=== PATIENT | female | born 1940 | race Caucasian/White ===

== ENCOUNTER → 2023-09-12 09:49 | Outpatient (CLI) | payer MEDICARE, SELFPAY ==
--- NOTE | 2023-09-12 | DI.NM.S_ITS ---
PROCEDURE: NM MAURI PERF SPECT R&S PHARM Rest and pharmacological stress myocardial perfusion SPECT with gated imaging and ejection fraction RADIOPHARMACEUTICAL: 11.4 mCi Tc-99m tetrafosmin IV at rest and 27.0 mCi Tc-99m tetrafosmin IV at peak effect of pharmacological stress. A [id number] was performed. 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 SPECT images were obtained. SPECT myocardial perfusion images were displayed in short axis, horizontal long axis, and vertical long axis views. Gated images were reviewed using [employer] software. COMPARISON: None. CARDIAC STRESS: An exercise stress test was attempted. The patient ambulated on a Jose A protocol for 3 minutes but was unable to keep up with the treadmill so it was switched to a pharmacologic study. A pharmacologic stress test was performed under the supervision of an attending staff, using an infusion of regadenoson 0.4 mg IV. Hemodynamic data: There is normal blood pressure and heart rate response to pharmacologic stress. Symptoms: The patient denied anginal chest pain. EKG: Rest ECG sinus rhythm, RBBB, PVCs. Exercise ECG sinus tachycardia, RBBB, no diagnostic ST segment changes, increased frequency of PVCs. FINDINGS: Raw data: There is good myocardial uptake of radiotracer. No significant motion artifacts. Left ventricle function: Gated images demonstrate normal left ventricular wall thickening. No segmental wall motion abnormalities. No transient ischemic dilation; TID is 0.94 (normal less than 1.3). Left ventricle resting end diastolic volume is 121 mL. Left ventricle stress ejection fraction is 76%; normal range is above 45%. Myocardial perfusion: There is normal distribution of activity in the right and left ventricular myocardium. No fixed or reversible perfusion defects. IMPRESSION: Low risk perfusion study. Exercise stress test transitioned to pharmacologic due to inability to keep up with the treadmill. No evidence of pharmacologic induced ischemia or scar. Top normal LV size by calculation with normal function. Increased PVC burden noted with exertion. Dictated by: Bren Brannon D.O. on 09/12/2023 at 15:31 Approved by: Bren Brannon D.O. on 09/12/2023 at 15:37
== END ==
PROVIDERS: PCP Family Medicine; Referring Provider Internal Medicine Cardiovascular Disease; Visit Provider Internal Medicine Cardiovascular Disease
DX: I25.10 Atherosclerotic heart disease of native coronary artery without angina pectoris (principal); I25.84 Coronary atherosclerosis due to calcified coronary lesion; R06.09 Other forms of dyspnea; R94.31 Abnormal electrocardiogram [ECG] [EKG]
CPT/HCPCS: 78452; 93017; A9502; J2785